=== PATIENT | male | born 1970 | race Caucasian/White ===

== ENCOUNTER 2016-06-16 23:47 | Emergency (ER) | payer BC ==
[~2016-06-16] VITALS: Ht 182.9 cm; Wt 104.5 kg
[2016-06-17 00:11] VITALS: BP 113/77
[2016-06-17] MEDS ORDERED: SODIUM CHLORIDE FLUSH 3 ML SYR IV PRN (00:20)
[2016-06-17] MEDS ORDERED: SODIUM CHLORIDE FLUSH 10 ML SYR IV PRN (00:20)
[2016-06-17] MEDS ORDERED: KETOROLAC 30 MG/ML (TORADOL) 1 ML VIAL IV ONE (00:20)
[2016-06-17] MEDS ORDERED: ONDANSETRON 2 MG/ML (Z0FRAN) 2 ML VIAL IV ONE ×2 (00:20→00:55)
[2016-06-17 00:27] LABS: BASOPHILS % (AUTO) 1 % (0-2); EOSINOPHILS # (AUTO) 0.2 10^3uL; EOSINOPHILS % (AUTO) 2 % (0-4); LYMPHOCYTES # (AUTO) 2.6 X10^3; MEAN CORPUSCULAR HEMOGLOBIN 29.4 PG (26.0-34.0); MEAN CORPUSCULAR VOLUME 83 FL (80-100); MEAN PLATELET VOLUME 9.8 FL (6.0-9.5); MONOCYTES # (AUTO) 0.8 X10^3; MONOCYTES % (AUTO) 10 % (3-11); NEUTROPHILS # (AUTO) 4.5 X10^3; NEUTROPHILS % (AUTO) 55 % (51-67); PLATELET COUNT 235 10^3uL (150-450); WHITE BLOOD COUNT 8.17 10^3uL (4.0-11.0)
[2016-06-17 00:31] LABS: MEAN CORPUSCULAR HGB CONC 35.5 g/dL (31.0-37.0)
[2016-06-17 00:37] LABS: ALBUMIN 4.3 g/dL (3.4-5.0); ANION GAP 13.9 MEQ/L (3-15); CALCULATED IONIZED CALCIUM 3.8 mg/dL (3.8-4.6); TOTAL PROTEIN 7.2 g/dL (6.4-8.5)
[2016-06-17] MEDS ORDERED: morphine INJ 4 MG/ML 1 ML SYRINGE IV ONE ×2 (00:55→01:25)
[2016-06-17] MEDS ORDERED: PROMETHAZINE HCL INJ 25 MG in SODIUM CHLORIDE 25 ML IV ONE (01:25)
--- NOTE | 2016-06-17 02:33 | NUR ---
pt was up to the br and attempted to void but was unable to at this time, pt back to bed and is resting at this time.
[2016-06-17 03:36] LABS: CLARITY,URINE Other; GLUCOSE, URINE (UA) Negative (Negative); LEUKOCYTE ESTERASE ,URINE Negative (Negative); UROBILINOGEN,URINE 0.2 mg/dL (0.2-1.0)
[2016-06-17 04:03] LABS: BILIRUBIN,URINE 1+ (Negative); COLOR,URINE Dark Yellow; URINE CENTRIFUGED VOLUME 12 mL
== END 2016-06-17 04:35 | disposition home or self-care (01) ==
LOC: ED 23:52
DX: N20.1 Calculus of ureter (principal)
CPT/HCPCS: 36415; 74176; 80053; 81003; 81015; 82150; 83690; 85025; 86140; 87088; 96361; 96365; 96375; 96376; 99284; J1885; J2270; J2405; J2550; J7030; 99283